=== PATIENT | female | born 1965 | race Caucasian/White ===

== ENCOUNTER 2017-07-14 08:05 | Outpatient (CLI) | payer OTHER ==
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
== END 2017-07-14 08:06 | disposition home or self-care (01) ==
LOC: MRI 08:05
PROVIDERS: ATTEND Family Medicine
DX: M54.5 Low back pain (principal); M47.816 Spondylosis without myelopathy or radiculopathy, lumbar region
CPT/HCPCS: 72148

== ENCOUNTER 2018-01-18 09:02 | Outpatient (CLI) | payer OTHER ==
--- NOTE | 2018-01-18 09:44 | MMO ---
BILATERAL MAMMOGRAMS: DATE: 01/18/18 HISTORY: Screening mammography. COMPARISON: 01/23/16. FINDINGS: Heterogeneously dense fibroglandular tissue is again demonstrated. Bilateral submuscular ruptured imp lants are partially visualized. No new dominant mass or suspicious calcifications. The study was evaluated with the assistance of computer-aided detection. IMPRESSION: BIRADS 2: Benign Finding(s) Suggest routine follow-up. POS: DEANNE
== END 2018-01-18 09:03 | disposition home or self-care (01) ==
LOC: SCSMAMMO 09:02
PROVIDERS: ATTEND Family Medicine
DX: Z12.31 Encounter for screening mammogram for malignant neoplasm of breast (principal)
CPT/HCPCS: 77067